=== PATIENT | male | born 1980 | race African-American/Black ===

== ENCOUNTER 2022-04-22 11:12 | Emergency (ER) | payer OTHER ==
[2022-04-22 11:37] VITALS: BP 119/76; PULSE 70; RESP 18; TEMP 98.2; BMI 27.2
[2022-04-22] MEDS ORDERED: DIPHTH,PERTUSS(ACELL),TET 0.5 ML DISP.SYRIN IM ONE ×2 (12:38→12:40)
== END 2022-04-22 13:22 | disposition home or self-care (01) ==
LOC: JERFT 11:12
PROC: 0HQEXZZ Repair Left Lower Arm Skin, External Approach (ICD-10-PCS; principal; 2022-04-22)
PROC: 3E0234Z Introduction of Serum, Toxoid and Vaccine into Muscle, Percutaneous Approach (ICD-10-PCS; 2022-04-22)
DX: S51.812A Laceration without foreign body of left forearm, initial encounter (principal)
CPT/HCPCS: 73090-TC-LT-FY; 90715; 99284-25